=== PATIENT | female | born 1995 | race Caucasian/White ===

== ENCOUNTER 2020-03-13 03:30 | Inpatient (IN) | payer BC ==
--- NOTE | 2020-03-13 10:32 | PR ---
[facility] [address] [facility] [place], [place] [address] Signed Progress Notes IP Datetime Report Generated by CPAleah: 03/13/2020 10:32 PROGRESS NOTES: [id number] Impression: Reassuring Heart Rate Other Impressions: slow progress Procedures: Sterile Vag Exam Other Plans: position changes VITAL SIGNS: [id number] Vital Signs: Reviewed; Within Normal Limits EXAM: [id number] Dilatation: 6.0 Effacement: 95 Station: -2 Contractions: q 1 to 3 min MEMBRANES: [id number] Comments: No real progress over the last hr. Will try position changes to see if this is helpful. FETUS A: [id number] FHR Baseline: 130 Variability: Moderate 6-25bpm Accelerations: 15X15 Decelerations: Variable FHR Category: Category II Presentation: Vertex Comments on Fetus A: overall reassuring with variability and accels FETUS B: [id number] Signing Physician: Taylor Hernandez MD Copies: ~ *Electronically Signed* 03/13/20 1032 TAYLOR HERNANDEZ MD PATIENT NAME: EDUARDO PRINGLE PROGRESS NOTE DATE OF : 89 PHYSICIAN: TAYLOR HERNANDEZ MD RPT #: [id number] REPORT IS CONFIDENTIAL AND NOT TO BE RELEASED WITHOUT AUTHORIZATION
--- NOTE | 2020-03-13 13:05 | PR ---
[facility] [address] [facility] [place], [place] [address] Signed Progress Notes IP Datetime Report Generated by ZOILA: 03/13/2020 13:05 PROGRESS NOTES: [id number] Impression: Normal Progression of Labor; Reassuring Heart Rate Other Impressions: slow progress Procedures: Scalp Electrode; Sterile Vag Exam Plan: Continue Present Management Other Plans: position changes VITAL SIGNS: [id number] Vital Signs: Reviewed; Within Normal Limits EXAM: [id number] Dilatation: 9.0 Effacement: 95 Station: 0 Contractions: q 1 to 3 min MEMBRANES: [id number] Comments: Progressing well. Will continue. FSE placed. FETUS A: [id number] FHR Baseline: 130 Variability: Moderate 6-25bpm Accelerations: 15X15 Decelerations: Variable FHR Category: Category II Presentation: Vertex Comments on Fetus A: overall reassuring with variability and accels FETUS B: [id number] Signing Physician: Taylor Hernandez MD Copies: ~ *Electronically Signed* 03/13/20 1305 TAYLOR HERNANDEZ MD PATIENT NAME: EDUARDO PRINGLE PROGRESS NOTE DATE OF : [birth year] PHYSICIAN: TAYLOR HERNANDEZ MD RPT #: [id number] REPORT IS CONFIDENTIAL AND NOT TO BE RELEASED WITHOUT AUTHORIZATION
--- NOTE | 2020-03-14 08:05 | PR ---
[facility] [address] [facility] [place], [place] [address] Signed PP Progress Notes Datetime Report Generated by CPAleah: 03/14/2020 08:04 SUBJECTIVE: [id number] Pain: Within Normal Limits Nausea/Vomiting: Denies Vital Signs: [id number] Vital Signs: Reviewed; Within Normal Limits EXAM: Ongoing Cardiovascular: Not Done Respiratory: Not Done Abdomen/Uterus: Abnormal Lochia: Normal Vulva/Perineum: Not Done Breasts: Not Done CVA Tenderness: Not Done Extremities: Normal Incision: Not Applicable Progress: Normal Exam Comments: Fundus firm, NT @ U-1. H/H 9.9/30.2, WBC 13.9, plat 153k IMPRESSION/PLAN/PROCEDURES: [id number] Impression: Normal Progression Plan: Continue Present Management Progress Notes: Doing well. Will continue present care. Signing Physician: Taylor Hernandez MD Copies: ~ *Electronically Signed* 03/14/20 08 TAYLOR HERNANDEZ MD PATIENT NAME: EDUARDO PRINGLE Aurelia PROGRESS NOTE DATE OF : [birth year] PHYSICIAN: TAYLOR HERNANDEZ MD RPT #: [id number] REPORT IS CONFIDENTIAL AND NOT TO BE RELEASED WITHOUT AUTHORIZATION
--- NOTE | 2020-03-15 08:22 | PR ---
[facility] [address] [facility] [place], [place] [address] Signed PP Progress Notes Datetime Report Generated by CPN: 03/15/2020 08:22 SUBJECTIVE: [id number] Pain: Within Normal Limits Nausea/Vomiting: Denies Vital Signs: [id number] Vital Signs: Reviewed; Within Normal Limits EXAM: Ongoing Cardiovascular: Not Done Respiratory: Not Done Abdomen/Uterus: Abnormal Lochia: Normal Vulva/Perineum: Not Done Breasts: Not Done CVA Tenderness: Not Done Extremities: Normal Incision: Not Applicable Progress: Normal Exam Comments: Fundus firm, NT @ U-2. IMPRESSION/PLAN/PROCEDURES: [id number] Impression: Normal Progression Plan: Discharge Procedures: None Progress Notes: Doing well. She is ready for D/C. Signing Physician: Taylor Hernandez MD Copies: ~ *Electronically Signed* 03/15/20821 TAYLOR HERNANDEZ MD PATIENT NAME: EDUARDO PRINGLE PROGRESS NOTE DATE OF : [birth year] PHYSICIAN: TAYLOR HERNANDEZ MD RPT #: [id number] REPORT IS CONFIDENTIAL AND NOT TO BE RELEASED WITHOUT AUTHORIZATION
== END 2020-03-15 10:15 | disposition home or self-care (01) | DRG 768 ==
LOC: FBCO 03:30 → FBC 03:59 → FBCO 11:46 → FBC 23:56
PROVIDERS: ADMIT Obstetrics & Gynecology
PROC: 10D07Z6 Extraction of Products of Conception, Vacuum, Via Natural or Artificial Opening (ICD-10-PCS; principal; 2020-03-13)
PROC: 0DQR0ZZ Repair Anal Sphincter, Open Approach (ICD-10-PCS; 2020-03-13)
PROC: 00HU33Z Insertion of Infusion Device into Spinal Canal, Percutaneous Approach (ICD-10-PCS; 2020-03-13)
PROC: 3E0R3BZ Introduction of Anesthetic Agent into Spinal Canal, Percutaneous Approach (ICD-10-PCS; 2020-03-13)
DX: O76 Abnormality in fetal heart rate and rhythm complicating labor and delivery (principal); Z37.0 Single live birth; O70.20 Third degree perineal laceration during delivery, unspecified; Z3A.39 39 weeks gestation of pregnancy; O63.1 Prolonged second stage (of labor); O32.4XX0 Maternal care for high head at term, not applicable or unspecified; O99.62 Diseases of the digestive system complicating childbirth; K21.9 Gastro-esophageal reflux disease without esophagitis; Z79.899 Other long term (current) drug therapy
CPT/HCPCS: 01960; 36415; 82803; 85027; A9270; J2795; J7121

== ENCOUNTER 2023-08-30 06:55 | Inpatient (IN) | payer OTHER ==
[~2023-08-30] VITALS: Ht 175.3 cm; Wt 71.2 kg
--- OUTSIDE RECORDS SUMMARY | ~2023-08-30 | XMS | Continuity of Care Document ---
Demographics + + + | Address | [address], [address] | | | [place] [address] | + + + | Preferred Language | Unknown | + + + | Marital Status | | + + + | Mu-Ism Affiliation | Unknown | + + + | Race | White | + + + | Ethnic Group | Not or | + + + Author + + + | Author | [facility] | + + + | Organization | [facility] | + + + | Address | [address] | | | [place] [address] | + + + | Phone | | + + + Care Team Providers + + + + | Care Roofing Contractor Name | Role | Phone | + + + + Unavailable | Unavailable | + + + + Unavailable | Unavailable | + + + + Allergies No information. Encounters No information. Functional Status No information. Immunizations No information. Medications + + + + | date | description | facility | + + + + | 2023-07-18 00:00 | labetalol hcl 20 mg in 4 | [facility] | | | ml cartridge | | + + + + | 2023-07-18 00:00 | nifedipine 10 mg oral | [facility] | | | capsule | | + + + + | 2023-07-19 00:00 | nifedipine 10 mg oral | [facility] | | | capsule | | + + + + | 2023-07-18 00:00 | calcium carbonate 500 mg | [facility] | | | (equivalent to calcium 200 | | | | mg) chewable tablet | | + + + + | 2023-08-02 00:00 | betamethasone 3 mg/ml (as | [facility] | | | betamethasone sodium | | | | phosphate) / betamethasone | | | | acetate 3 mg/ml injectable | | | | suspension | | + + + + | 2023-07-18 00:00 | calcium chloride 0.0014 | [facility] | | | meq/ml / k+ chloride 0.004 | | | | meq/ml / nacl 0.103 meq/ml | | | | / sodium lactate 0.028 | | | | meq/ml injectable solution | | + + + + | 2023-08-02 00:00 | iron | [facility] | + + + + | 2023-07-18 00:00 | 1 ml hydralazine | [facility] | | | hydrochloride 20 mg/ml | | | | injection | | + + + + | 2023-07-18 00:00 | hydroxyzine hydrochloride | [facility] | | | 50 mg oral tablet | | + + + + Problems + + + + | date | description | facility | + + + + | 2023-07-18 00:00 | cervical incompetence with | [facility] | | | problem | | | | (disorder) | | + + + + | 2023-07-18 00:00 | Premature cervical | [facility] | | | dilation, third trimester | | | | (HHS/HCC) | | + + + + Procedures + + + + | date | description | facility | + + + + | 2023-07-19 00:00 | NON-STRESS TEST | [facility] | | | (HOSPITAL PERFORMED) | | + + + + | 2023-07-19 00:00 | TYPE AND SCREEN | [facility] | + + + + | 2023-07-19 00:00 | HOLD BLOOD BANK SPECIMEN | [facility] | + + + + | 2023-07-19 00:00 | HC URINALYSIS W | [facility] | | | MICROSCOPIC AUTO | | + + + + | 2023-07-19 00:00 | HC ANTIBODY SCREEN | [facility] | + + + + | 2023-07-19 00:00 | HC RH TYPE | [facility] | + + + + Results/Labs +--------+--------+ +---------+--------+---------+ | test | date | facility | value | unit | notes | +--------+--------+ +---------+--------+---------+ + + | Result panel 1 | + + + + + + + + + | Specimen | (no date) | [facility] | (missing) | (missing) | (missing) | | collection | | [facility] DEL[facility] | | | | | (procedure) | | | | | | + + + + + + + + + | Result panel 2 | + + + + + + + + + | Specimen | (no date) | [facility] | (missing) | (missing) | (missing) | | collection | | AND DELIVERY | | | | | (procedure) | | | | | | + + + + + + + + + | Result panel 3 | + + + + + + + + + | Specimen | (no date) | [facility] | (missing) | (missing) | (missing) | | collection | | AND DELIVERY | | | | | (procedure) | | | | | | + + + + + + + + + | Result panel 4 | + + + + + + + + + | Specimen | (no date) | [facility] | (missing) | (missing) | (missing) | | collection | | AND DELIVERY | | | | | (procedure) | | | | | | + + + + + + + + + | Result panel 5 | + + + + + + + + + | Specimen | (no date) | [facility] | (missing) | (missing) | (missing) | | collection | | AND DELIVERY | | | | | (procedure) | | | | | | + + + + + + + + + | Result panel 6 | + + + + + +--------+ + + | Hold BBK | 2023-07-19 | [facility] | Done | (missing) | (missing) | | Order | 04:09:02 | AND DELIVERY | | | | | | | | | | | + + + +--------+ + + + + | Result panel 7 | + + + + + +---------+ + + | ABORH INT | 2023-07-19 | [facility] | A POS | (missing) | (missing) | | | 04:17:42 | AND DELIVERY | | | | | | | | | | | + + + +---------+ + + + + | Result panel 8 | + + + + + +---------+ + + | Type & | 2023-07-19 | [facility] | Ready | (missing) | (missing) | | Screen | 04:40:42 | AND DEL[facility]ERY | | | | | Request | | | | | | + + + +---------+ + + + + | Result panel 9 | + + + + + + + + + | Antibody | 2023-07-19 | [facility] | Negative | (missing) | (missing) | | Screen | 04:40:42 | AND DELIVERY | ABSC | | | | | | | | | | + + + + + + + + + | Result panel 10 | + + + + + + + + + | UA Albumin | 2023-07-19 | [facility] | Negative | (missing) | (missing) | | | 06:03:55 | AND DELIVERY | | | | | | | | | | | + + + + + + + + + | Result panel 11 | + + + + + +---------+ + + | UA | 2023-07-19 | [facility] | Trace | (missing) | (missing) | | Leukocyte | 06:03:55 | [facility] DEL[facility]ERY | | | | | Esterase | | | | | | + + + +---------+ + + + + | Result panel 12 | + + + + + + + + + | UA Nitrite | 2023-07-19 | [facility] | Negative | (missing) | (missing) | | | 06:03:55 | AND DELIVERY | | | | | | | | | | | + + + + + + + + + | Result panel 13 | + + + + + +-------+ + + | UA WBC/hpf | 2023-07-19 | [facility] | 2-5 | (missing) | (missing) | | | 06:03:55 | AND DELIVERY | | | | | | | | | | | + + + +-------+ + + + + | Result panel 14 | + + + + + +-------+ + + | UA RBC/HPF | 2023-07-19 | [facility] | 0-3 | (missing) | (missing) | | | 06:03:55 | AND DELIVERY | | | | | | | | | | | + + + +-------+ + + + + | Result panel 15 | + + + + + +--------+ + + | UA Bacteria | 2023-07-19 | [facility] | Rare | (missing) | (missing) | | | 06:03:55 | AND DELIVERY | | | | | | | | | | | + + + +--------+ + + + + | Result panel 16 | + + + + + +-------+ + + | UA | 2023-07-19 | [facility] | Few | (missing) | (missing) | | Epithelial | 06:03:55 | [facility] DEL[facility]ERY | | | | | Cell | | | | | | + + + +-------+ + + + + | Result panel 17 | + + + + + +------+ + + | UA Cult | 2023-07-19 | [facility] | No | (missing) | (missing) | | Reflex? | 06:03:55 | AND DELIVERY | | | | | | | | | | | + + + +------+ + + + + | Result panel 18 | + + + + + + + + + | | 2023-07-19 | [facility] | Abnormal | (missing) | (missing) | | (unavailable | 06:03:55 | AND DELIVERY | | | | | ) | | | | | | + + + + + + + + + | Result panel 19 | + + + + + + + + + | UA Color | 2023-07-19 | [facility] | Yellow | (missing) | (missing) | | | 06:03:55 | AND DELIVERY | | | | | | | | | | | + + + + + + + + + | Result panel 20 | + + + + + +---------+ + + | UA | 2023-07-19 | [facility] | Clear | (missing) | (missing) | | Turbidity | 06:03:55 | AND DELIVERY | | | | | | | | | | | + + + +---------+ + + + + | Result panel 21 | + + + + + +---------+ + + | UA Glucose | 2023-07-19 | [facility] | Trace | (missing) | (missing) | | | 06:03:55 | AND DELIVERY | | | | | | | | | | | + + + +---------+ + + + + | Result panel 22 | + + + + + + + + + | UA | 2023-07-19 | [facility] | Negative | (missing) | (missing) | | Bilirubin | 06:03:55 | AND DELIVERY | | | | | | | | | | | + + + + + + + + + | Result panel 23 | + + + + + +------+ + + | UA Ketones | 2023-07-19 | [facility] | 2+ | (missing) | (missing) | | | 06:03:55 | [facility] DEL[facility]ERY | | | | | | | | | | | + + + +------+ + + + + | Result panel 24 | + + + + + +---------+ + + | UA Specific | 2023-07-19 | [facility] | 1.010 | (missing) | (missing) | | [place] | 06:03:55 | AND DEL[facility]ERY | | | | | | | | | | | + + + +---------+ + + + + | Result panel 25 | + + + + + +------+ + + | UA Blood | 2023-07-19 | [facility] | 1+ | (missing) | (missing) | | | 06:03:55 | AND DELIVERY | | | | | | | | | | | + + + +------+ + + + + | Result panel 26 | + + +---------+ + +-------+ + + | UA pH | 2023-07-19 | [facility] | 6.5 | (missing) | (missing) | | | 06:03:55 | AND DELIVERY | | | | | | | | | | | +---------+ + +-------+ + + + + | Result panel 27 | + + + + + + + + + | | 2023-07-19 | [facility] | (missing) | (missing) | (missing) | | (unavailable | 17:08 | [facility] DEL[facility]ERY | | | | | ) | | | | | | + + + + + + + Social History +--------+ + + | date | description | facility | +--------+ + + Vital Signs + + +---------+---------+ | date | measurement | value | units | + + +---------+---------+ | 2023-07-19 00:00 | o2_saturation | 97 | % | + + +---------+---------+ | 2023-07-20 00:00 | BP_diastolic | 70 | mmHg | + + +---------+---------+ | 2023-07-20 00:00 | BP_systolic | 110 | mmHg | + + +---------+---------+ | 2023-07-20 00:00 | heart_rate | 88 | /min | + + +---------+---------+ | 2023-07-20 00:00 | respiration_rate | 16 | /min | + + +---------+---------+ | 2023-07-20 00:00 | temperature_metric | 36.72 | C | | | | | | + + +---------+---------+ | 2023-07-20 00:00 | | 98.1 | F | | | temperature_standar | | | | | d | | | + + +---------+---------+"
[2023-08-30 07:57] LABS: HEMATOCRIT 33.5 % (35.0-50.0); MCH 29.6 (27-36); MCV 89.8 fl (81-99); RBC 3.73 M/ul (4.3-5.7); RDW 13.5 (10.5-15.0)
[2023-08-30 08:31] LABS: ABO A; ANTIBODY SCREEN NEGATIVE; RH POSITIVE
[2023-08-30 08:33] VITALS: BP 112/71
[2023-08-30 09:17] LABS: AMPHETAMINES, URINE NEGATIVE (NEGATIVE); BARBITURATES, URINE NEGATIVE (NEGATIVE); BENZODIAZEPINE, URINE NEGATIVE (NEGATIVE); BUPRENORPHINE, URINE NEGATIVE (NEGATIVE); CANNABINOID, URINE NEGATIVE (NEGATIVE); COCAINE, URINE NEGATIVE (NEGATIVE); ECSTASY, URINE NEGATIVE (NEGATIVE); FENTANYL, URINE NEGATIVE (NEGATIVE); METHADONE, URINE NEGATIVE (NEGATIVE); OPIATES, URINE NEGATIVE (NEGATIVE); OXYCODONE, URINE NEGATIVE (NEGATIVE); PHENCYCLIDINE, URINE NEGATIVE (NEGATIVE)
--- NOTE | 2023-08-30 12:03 | PR ---
[facility] [address] [facility] [place] [address] Signed Progress Notes IP Datetime Report Generated by CPN: 08/30/2023 12:03 PROGRESS NOTES: [id number] Impression: Normal Progression of Labor; Reassuring Heart Rate Procedures: Artificial ROM; Sterile Vag Exam Plan: Continue Present Management VITAL SIGNS: [id number] Vital Signs: Reviewed; Within Normal Limits EXAM: [id number] Dilatation: 4.5 Effacement: 80 Station: -2 Contractions: q 2 to 3 min MEMBRANES: [id number] Membranes Status: Intact Comments: Progressing. Starting to feel the contractions a little. Will continue. FETUS A: [id number] FHR Baseline: 140 Variability: Moderate 6-25bpm Accelerations: 15X15 Decelerations: None FHR Category: Category I Presentation: Vertex Comments on Fetus A: no evidence of metabolic acidosis FETUS B: [id number] Signing Physician: Taylor Hernandez MD Copies: ~ *Electronically Signed* 08/30/23 1203 TAYLOR HERNANDEZ MD PATIENT NAME: EDUARDO PRINGLE PROGRESS NOTE DATE OF : [birth year] PHYSICIAN: TAYLOR HERNANDEZ MD RPT #: [id number] REPORT IS CONFIDENTIAL AND NOT TO BE RELEASED WITHOUT AUTHORIZATION
[2023-08-31 05:46] LABS: HEMOGLOBIN 10.3 g/dL (12.0-18.0); MCH 30.3 (27-36); MCHC 34.5 g/dl (30-36); MCV 87.9 fl (81-99); RBC 3.41 M/ul (4.3-5.7); RDW 13.3 (10.5-15.0)
--- NOTE | 2023-08-31 07:14 | PR ---
[facility] [address] [facility] [place], [place] [address] Signed PP Progress Notes Datetime Report Generated by ZOILA: 08/31/2023 07:14 SUBJECTIVE: [id number] Pain: Within Normal Limits Nausea/Vomiting: Denies Vital Signs: [id number] Vital Signs: Reviewed; Within Normal Limits EXAM: Ongoing Cardiovascular: Not Done Respiratory: Not Done Abdomen/Uterus: Abnormal Lochia: Normal Vulva/Perineum: Not Done Breasts: Not Done CVA Tenderness: Not Done Extremities: Normal Incision: Not Applicable Progress: Abnormal Exam Comments: Fundus firm, NT @ U-1. H/H 10.3/30, WBC 9.4, plat 147k IMPRESSION/PLAN/PROCEDURES: [id number] Impression: Normal Progression; Difficulties Plan: Consult Procedures: None Progress Notes: Doing well other than breast feeding. Will work on this today with discharge in am. Signing Physician: Taylor Hernandez MD Copies: ~ *Electronically Signed* 08/31/23713 TAYLOR HERNANDEZ MD PATIENT NAME: MITUL PRINGLESA Moses PROGRESS NOTE DATE OF : 89 PHYSICIAN: TAYLOR HERNANDEZ MD RPT #: [id number] REPORT IS CONFIDENTIAL AND NOT TO BE RELEASED WITHOUT AUTHORIZATION
== END 2023-08-31 18:30 | disposition home or self-care (01) | DRG 807 ==
LOC: FBC 06:55
PROVIDERS: ADMIT Obstetrics & Gynecology; ATTEND Obstetrics & Gynecology
PROC: 10E0XZZ Delivery of Products of Conception, External Approach (ICD-10-PCS; principal; 2023-08-30)
PROC: 0KQM0ZZ Repair Perineum Muscle, Open Approach (ICD-10-PCS; 2023-08-30)
PROC: 0UQMXZZ Repair Vulva, External Approach (ICD-10-PCS; 2023-08-30)
PROC: 3E0R3BZ Introduction of Anesthetic Agent into Spinal Canal, Percutaneous Approach (ICD-10-PCS; 2023-08-30)
PROC: 00HU33Z Insertion of Infusion Device into Spinal Canal, Percutaneous Approach (ICD-10-PCS; 2023-08-30)
PROC: 10907ZC Drainage of Amniotic Fluid, Therapeutic from Products of Conception, Via Natural or Artificial Opening (ICD-10-PCS; 2023-08-30)
PROC: 4A1HXCZ Monitoring of Products of Conception, Cardiac Rate, External Approach (ICD-10-PCS; 2023-08-30)
DX: O76 Abnormality in fetal heart rate and rhythm complicating labor and delivery (principal); Z37.0 Single live birth; Z3A.39 39 weeks gestation of pregnancy; O70.1 Second degree perineal laceration during delivery; O69.81X0 Labor and delivery complicated by cord around neck, without compression, not applicable or unspecified
CPT/HCPCS: 36415; 80307; 85027; 86850; 86900; 86901; A9270; J2001; J2590; J2795; J7121